=== PATIENT | female | born 1980 | race Caucasian/White ===

== ENCOUNTER 2021-03-22 17:55 | Inpatient (IN) ==
[2021-03-22] MEDS ORDERED: LACTATED RINGER'S 1,000 ML IV PRN (17:57)
[2021-03-22] MEDS ORDERED: OXYTOCIN 30 UNITS/500 ML BAG IV PRN ×2 (17:57→18:34)
[2021-03-22] MEDS ORDERED: OXYTOCIN 10 UNITS/ML VIAL ONE (18:12)
[2021-03-22] MEDS ORDERED: miSOPROStoL 200 MCG TAB ONE (18:13)
[2021-03-22] MEDS ORDERED: LIDOCAINE 1% LOCAL 20 ML VIAL ONE (18:13)
[2021-03-22] MEDS ORDERED: OXYTOCIN 10 UNITS/ML VIAL IM ONE (18:34)
[2021-03-22] MEDS ORDERED: oxyCODONE/ACETAMINOPHEN 5mg/325mg TAB PO PRN (18:34)
[2021-03-22] MEDS ORDERED: ACETAMINOPHEN 325 MG TAB PO PRN (18:34)
[2021-03-22] MEDS ORDERED: ACETAMINOPHEN W/CODEINE #3 1 TAB PO PRN (18:34)
[2021-03-22] MEDS ORDERED: SUPERCREAM 0.870% 15 GM JAR EXT PRN (18:34)
[2021-03-22] MEDS ORDERED: BENZOCAINE 20% AER SPR 82.5 GM CAN EXT PRN (18:34)
[2021-03-22] MEDS ORDERED: bisacodyL 10 MG SUPP PR PRN (18:34)
[2021-03-22] MEDS ORDERED: IBUPROFEN 600 MG TAB PO PRN (18:34)
[2021-03-22] MEDS ORDERED: DIPHTHERIA/TETANUS/PERTUSSIS 0.5 ML SYR/VIAL IM ONE (18:34)
[2021-03-22] MEDS ORDERED: HYDROCORTISONE ACETATE 25 MG SUPP PR PRN (18:34)
[2021-03-22] MEDS ORDERED: miSOPROStoL 200 MCG TAB PR ONE (18:34)
[2021-03-22] MEDS ORDERED: METHYLERGONOVINE MALEATE 0.2 MG/ML AMP IM ONE (18:34)
[2021-03-22 19:23] LABS: Hemoglobin 12.3 g/dL (12.0-16.0); Mean Corpuscular Hemoglobin 28.9 pg (25-34); Mean Corpuscular Hgb Conc 34.2 g/dL (32-36); Mean Corpuscular Volume 84.7 fL (80-100); Mean Platelet Volume 11.6 fL (7.4-10.4); Platelet Count 202 K/uL (130-400); RDW Coefficient of Variation 14.1 % (11.5-14.5); RDW Standard Deviation 43.3 fL (36.4-46.3); Red Blood Count 4.25 M/uL (4.2-5.4)
--- NOTE | 2021-03-22 19:34 | Delivery Summary ---
DATE OF DELIVERY: 03/22/2021 She is 5, para 5. Blood type O negative. Group B strep negative. Due date 03/23/2021. Andrew led, said she was in active labor. Came to the hospital immediately. First time I checked her, she w as just an anterior lip. She quickly went to full dilatation, pushed out a live male via dire ct occiput anterior position over an intact perineum. There was a nuchal cord, which was reduced ove r the head and then the baby was delivered without difficulty. The cord was allowed to pulse for 1 m inute, then it was clamped and cut. Cord blood was taken. The patient at this point did not have an IV. We gave 10 units of IM Pitocin, 0.2 mg of Methergine and 800 mcg of rectal Cytotec. Uterus con tracted nicely. The placenta was expelled without difficulty. Hemostasis was good. She had a first -degree laceration. This was repaired anatomically. The vaginal mucosa was repaired out to beyond t he hymenal ring with a running Vicryl. A deep suture of Vicryl was used to approximate the bulbocave rnosus muscle. Separate deep suture was used to approximate the perineal body. Then, a running subcu ticular suture was used to approximate the perineal skin edges. Following this, vaginal exam includi ng rectovaginal examination revealed no hematoma formation or sponges in the vagina. Estimated blood loss was only 100 mL. Job ID: [id number]
[2021-03-23] MEDS: DOCUSATE SODIUM 100 MG CAP PO SCH ×3 (00:16→20:42)
[2021-03-23 07:00] LABS: Hematocrit (blood only) 34.5 % (37-47); Hemoglobin 11.4 g/dL (12.0-16.0); Mean Corpuscular Hemoglobin 28.2 pg (25-34); Mean Corpuscular Volume 85.4 fL (80-100); Mean Platelet Volume 11.1 fL (7.4-10.4); Platelet Count 188 K/uL (130-400); RDW Coefficient of Variation 14.3 % (11.5-14.5); RDW Standard Deviation 44.4 fL (36.4-46.3); Red Blood Count 4.04 M/uL (4.2-5.4); White Blood Count 15.04 K/uL (4.8-10.8)
[2021-03-23] MEDS: PRENATAL VITAMIN 1 TAB PO SCH (08:33)
--- NOTE | 2021-03-23 11:32 | Obstetrical Progress Note ---
Date of Service March 23, 2021 Assessment & Plan Admission and Anticipated Discharge Date Admission Date: March 22, 2021 Physical Exam Physical Exam: abdomen soft and non tender ambulating well no calf tenderness vaginal bleeding scant hgb 11.4 Results & Data ([facility]) Vital Signs (Past 12 Hours) Vital Signs Temp Pulse Resp BP Pulse Ox 03/23/21 08:10 36.6 C 59 L 18 127/69 03/23/21 03:20 36.8 C 71 16 107/68 99
[2021-03-23] MEDS ORDERED: bisacodyL 5 MG TABEC PO SCH (20:00)
[2021-03-24 06:54] LABS: Hematocrit (blood only) 32.2 % (37-47); Hemoglobin 10.5 g/dL (12.0-16.0)
[2021-03-24] MEDS: PRENATAL VITAMIN 1 TAB PO SCH (08:53)
[2021-03-24] MEDS: DOCUSATE SODIUM 100 MG CAP PO SCH (08:53)
--- NOTE | 2021-03-24 10:25 | Obstetrical Progress Note ---
Date of Service March 24, 2021 Assessment & Plan Admission and Anticipated Discharge Date Admission Date: March 22, 2021 Subjective abdomen soft and non tender ambulating well no calf tenderness superficial clot left leg below the knee anterior vaginal bleeding scant hgb 10.5 doppler ordered Results & Data ([facility]) Vital Signs (Past 12 Hours) Vital Signs Temp Pulse Resp BP Pulse Ox 03/24/21 02:15 36.5 C 76 16 104/75 100
--- NOTE | 2021-03-24 10:58 | Ultrasound Report ---
LEFT LOWER EXTREMITY VENOUS DOPPLER CLINICAL HISTORY: Superficial phlebitis. COMPARISON STUDY: No previous studies for comparison. TECHNIQUE: Sonography of the deep venous system of the left lower extremity was performed. Compressi on and augmentation were evaluated. FINDINGS: The left common femoral, superficial femoral and popliteal veins were compressible. Augmen tation was normal. Note is made of thrombus within a superficial vein of the left calf which extends for 2.9 cm in length. This is not in close proximity to the deep system. IMPRESSION: 1. Superficial thrombus within the left calf which extends for 2.9 cm in length. This represents supe rficial thrombophlebitis. 2. No evidence of deep venous thrombus within the left lower extremity. ACT 112: Negative or not required by law. Electronically signed by: Brian Chi M.D. 03/24/2021 10:57 AM
== END 2021-03-24 12:00 | disposition home or self-care (01) | DRG 806 ==
LOC: OPB 17:55 → 4S1 17:56 → 4S2 21:10